=== PATIENT | male | born 1965 | race Caucasian/White ===

== ENCOUNTER → 2023-12-20 07:08 | Outpatient (REF) | payer OTHER, SELFPAY ==
[2023-12-20] MEDS: LEXISCAN 0.400000000000000022 MG IV (09:20)
[2023-12-20] MEDS: FLUSH (NSS) 1 FLUSH IV (09:21)
== END ==
LOC: RCS 07:08
PROVIDERS: ATTENDING PHYSICIAN Internal Medicine; FAMILY PHYSICIAN Family Medicine
DX: R79.89 Other specified abnormal findings of blood chemistry (principal); I45.10 Unspecified right bundle-branch block
CPT/HCPCS: 78452; 93017; A9500; J2785

== ENCOUNTER → 2024-07-30 20:03 | Outpatient (REF) | payer OTHER, SELFPAY | LOC: MRI 3T 20:03 | PROVIDERS: ATTENDING PHYSICIAN Physician Assistant; FAMILY PHYSICIAN Family Medicine | DX: C43.9 Malignant melanoma of skin, unspecified (principal); I72.9 Aneurysm of unspecified site; Z01.818 Encounter for other preprocedural examination | CPT/HCPCS: 70553; A9575 ==